=== PATIENT | male | born 1945 | race Caucasian/White ===

== ENCOUNTER 2023-08-18 17:05 | Inpatient (IN) | payer MEDICARE, OTHER, SELFPAY ==
[2023-08-18 17:30] VITALS: BP 122/83; PULSE 67; RESP 20; TEMP 36.5
[2023-08-18 17:47] VITALS: BMI 27.1
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
[2023-08-19 06:00] VITALS: BP 127/83; PULSE 51; RESP 18; TEMP 36.3; O2SAT 96
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
--- NOTE | 2023-08-19 11:34 | HO.PM.IMCN ---
History of Present Illness Data of Consult Service Date: 08/19/23 Requesting physician: Solo Montes De Oca Primary Care Provider: Unknown Physician HPI Reason for consult: medical h&P 77 year old male with history of paroxysmal atrial fibrillation anticoagulated with eliquis, BPH, hld, htn, gout, mixed vascular alzheimer's dementia, hx compression fracture admitted to psychiatry from [facility] ED with consult placed to hospitalist team for medical H&P. On review, ED provider notes of patient chart, [facility] ED medical provider notes are unavailable and patient is unavailable for exam at the time of evaluation. Medical history obtained from [facility] EHR. EKG at [facility] revealed NSR, rate [address]/T wave abnormalities. CBC, CMP, UA all reassuring. Review of Systems Review of Systems: Yes Other (pt unavailable) [facility] Medical History Tubular adenoma of colon Impaired fasting glucose BPH (benign prostatic hyperplasia) HLD (hyperlipidemia) Paroxysmal atrial fibrillation HTN (hypertension) Surgical History Status post placement of implantable loop recorder Social History Household Members: None Housing: [facility] Unable to assess alcohol history related to: Unable to respond Patient Tobacco Use Status: Tobacco use Unknown Years Smoked: Unable to answer due to cognitive status Frequency of e-Cigarette/Vaping Use: Unable to answer due to cognitive status Use of substances other than those prescribed or required for medical reasons: Unable to respond Substance Use Type Other:: Unable to answer due to cognitive status Last Used Substance: Unknown Last Used Substance Other:: Unable to answer due to cognitive status Currently Displaying Signs/Symptoms of Drug Intoxication Withdrawal: No Other Past Substance Use Problem:: Unable to answer due to cognitive status Spiritual Healthcare Practices: Unable to answer due to cognitive status [facility] Healthcare Practices: Unable to answer due to cognitive status Cultural Healthcare Practices: Unable to answer due to cognitive status Advance Directives: Yes ([facility] came with pt.) Advance Directives Information Provided: No Advance Directives on File: Yes Advance Directives Date on File: 08/18/23 Do you have thoughts of harming others: None Do you have a plan to hurt others: No Plan Recently lost weight without trying: Unsure How much weight loss: Unsure Nutrition Risks: No Nutritional Risk Meds Allergies Allergy/AdvReac Type Severity Reaction Status Date / Time ABELARDO Inhibitors Allergy Unknown Verified 08/18/23 17:46 ARB-Angiotensin Receptor Allergy Unknown Verified 08/18/23 17:46 Antagonist Active Medications: Current Medications Acetaminophen (Acetaminophen 325 Mg Tablet) 650 mg PO Q6H PRN PRN Reason: Headache/Pain Mild Scale (1-3) Al Hydroxide/Mg Hydroxide (Magnesium Hydrox/Alum Hydrox 30 Ml Oral.Susp) 30 ml PO Q6H PRN PRN Reason: Heartburn/Nausea Apixaban (Apixaban 5 Mg Tablet) 5 mg PO BID [facility] Last Admin: 08/19/23 08:28 Dose: 5 mg Artificial Tears (Artificial Tears 15 Ml Drops) 1 drop EYE-BOTH DAILY [facility] Last Admin: 08/19/23 09:19 Dose: Not Given Atorvastatin Calcium (Atorvastatin Calcium 80 Mg Tablet) 80 mg PO DAILY [facility] Last Admin: 08/19/23 08:28 Dose: 80 mg Finasteride (Finasteride 5 Mg Tablet) 5 mg PO DAILY [facility] Last Admin: 08/19/23 08:28 Dose: 5 mg Gabapentin (Gabapentin 300 Mg Capsule) 300 mg PO BEDTIME [facility] Last Admin: 08/18/23 20:47 Dose: 300 mg Magnesium Hydroxide (Milk Of Magnesia 30 Ml Oral.Susp) 30 ml PO DAILY PRN PRN Reason: Constipation Memantine (Memantine Hcl 5 Mg Tablet) 5 mg PO BEDTIME [facility] Last Admin: 08/18/23 20:47 Dose: 5 mg Mirtazapine (Mirtazapine 7.5 Mg Tablet) 7.5 mg PO BEDTIME [facility] Last Admin: 08/18/23 20:47 Dose: 7.5 mg Nicotine Polacrilex (Nicotine Polacrilex 2 Mg Gum) 4 mg BUCCAL Q2H PRN PRN Reason: Nicotine Cravings Olanzapine (Olanzapine Odt 10 Mg Tab.Rapdis) 10 mg TRANSLINGU TID PRN PRN Reason: agitation Olanzapine (Olanzapine 2.5 Mg Tablet) 2.5 mg PO DAILY [facility] Last Admin: 08/19/23 08:28 Dose: 2.5 mg Olanzapine (Olanzapine 7.5 Mg Tablet) 7.5 mg PO BEDTIME [facility] Last Admin: 08/18/23 20:47 Dose: 7.5 mg Trazodone HCl (Trazodone Hcl 50 Mg Tablet) 50 mg PO BEDTIME MRX1 PRN PRN Reason: Insomnia Last Admin: 08/18/23 20:47 Dose: 50 mg Home Medications Medication Instructions Recorded Confirmed Last Taken Type Artificial Tears 1 drp ophthalmic (eye) DAILY 08/18/23 08/18/23 Unknown History apixaban 5 mg tablet (Eliquis) 5 mg PO BID 08/18/23 08/18/23 Unknown History atorvastatin 80 mg tablet 80 mg PO DAILY 08/18/23 08/18/23 Unknown History finasteride 5 mg tablet 5 mg PO DAILY 08/18/23 08/18/23 Unknown History gabapentin 300 mg capsule 300 mg PO BEDTIME 08/18/23 08/18/23 Unknown History memantine 5 mg tablet 5 mg PO BEDTIME 08/18/23 08/18/23 Unknown History mirtazapine 15 mg tablet 7.5 mg PO BEDTIME 08/18/23 08/18/23 Unknown History olanzapine 2.5 mg tablet 2.5 mg PO DAILY 08/18/23 08/18/23 Unknown History olanzapine 7.5 mg tablet 7.5 mg PO BEDTIME 08/18/23 08/18/23 Unknown History Physical Exam Vital Signs and Narrative: Vital Signs: Last Vital Signs Temp 97.3 F 08/19/23 06:00 Pulse 51 08/19/23 06:00 Resp 18 08/19/23 06:00 BP 127/83 08/19/23 06:00 Pulse Ox 96 08/19/23 06:00 O2 Del Method Room Air 08/19/23 06:00 BMI result Body Mass Index 27.1 Pt unavailable for examination Results Labs Labs: Laboratory Results - last 24 hr 08/19/23 08:43 Estimat Average Glucose 105 Hemoglobin A1c % 5.3 Triglycerides 53 Cholesterol 94 LDL Cholesterol, Calc 43 HDL Cholesterol 41 Assessment and Plan (1) Routine medical exam: Status: Acute Plan 77 year old male with history of paroxysmal atrial fibrillation anticoagulated with eliquis, BPH, hld, htn, gout, mixed vascular alzheimer's dementia, hx compression fracture admitted to psychiatry from [facility] ED with consult placed to hospitalist team for medical H&P. #Mood diorder/dementia -plan per psychiatry #Paroxysmal atrial fibrillation -continue eliquis for anticoagulation -rate controlled, not on rate control medications #BPH -continue finsteride #HTN -bp reasonably controlled -not on antihypertensive agents -monitor bp #HLD -continue statin Available [facility] records reviewed. ED medical provider unavailable for review and pt unavailable for exam. Thank you for allowing me to participate in this consult. Signing off at this time. Please do not hesitate to call for further questions or for any acute medical issues that may arise. Time Spent With Patient Time: Total time managing care of this patient today ____ minutes.
[2023-08-19 18:00] VITALS: BP 140/73; PULSE 58; RESP 16; TEMP 36.3; O2SAT 96
[2023-08-20 08:00] VITALS: BP 134/72; PULSE 62; RESP 16; TEMP 36.5; O2SAT 96
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
[2023-08-20 18:00] VITALS: PULSE 66; RESP 20; TEMP 36.6; O2SAT 92
[2023-08-21 06:00] VITALS: BP 136/78; PULSE 62; RESP 18; TEMP 36.2; O2SAT 96
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
[2023-08-21 20:10] VITALS: BP 150/55; PULSE 56; RESP 17; TEMP 36.4; O2SAT 95
[2023-08-22 06:00] VITALS: BP 148/67; PULSE 62; RESP 18; TEMP 36.5; O2SAT 96
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
[2023-08-22 20:28] VITALS: BP 115/57; PULSE 65; TEMP 36.2; O2SAT 93
[2023-08-23 06:00] VITALS: BP 139/59; PULSE 61; RESP 16; TEMP 36.2; O2SAT 94
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
[2023-08-23 18:00] VITALS: BP 115/88; PULSE 67; RESP 17; TEMP 36.7; O2SAT 93
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
[2023-08-24 10:54] VITALS: BP 114/59; PULSE 66; RESP 18; TEMP 36.1; O2SAT 94
[2023-08-24 18:00] VITALS: BP 127/71; PULSE 61; RESP 18; TEMP 36.1; O2SAT 93
[2023-08-24] MEDS: OLANZapine ODT 10 MG TAB.RAPDIS 5 MG TRANSLINGU (18:07)
[2023-08-24] MEDS: OLANZapine 7.5 MG TABLET PO (20:40)
[2023-08-24] MEDS: traZODone HCL 50 MG TABLET PO (20:40)
[2023-08-24] MEDS: Mirtazapine 7.5 MG TABLET PO (20:40)
[2023-08-24] MEDS: Gabapentin 300 MG CAPSULE PO (20:40)
[2023-08-24] MEDS: Divalproex Sodium Sprinkles 125 MG CAP.DR.SPR PO (20:40)
[2023-08-24] MEDS: Memantine HCl 5 MG TABLET PO (20:41)
[2023-08-24] MEDS: Apixaban 5 MG TABLET PO (20:41)
[2023-08-25 07:00] VITALS: BMI 24.8
[2023-08-25 08:00] VITALS: BP 149/74; PULSE 77; RESP 18; TEMP 36.2; O2SAT 93
[2023-08-25] MEDS: Finasteride 5 MG TABLET PO (08:10)
[2023-08-25] MEDS: OLANZapine 2.5 MG TABLET PO (08:11)
[2023-08-25] MEDS: Artificial Tears 15 ML DROPS 1 DROP EYE-BOTH (08:11)
[2023-08-25] MEDS: Apixaban 5 MG TABLET PO ×2 (08:11→20:44)
[2023-08-25] MEDS: Atorvastatin Calcium 80 MG TABLET PO (08:11)
[2023-08-25] MEDS: Divalproex Sodium Sprinkles 125 MG CAP.DR.SPR PO ×2 (08:11→20:44)
[2023-08-25] MEDS: OLANZapine ODT 10 MG TAB.RAPDIS 5 MG TRANSLINGU (18:40)
[2023-08-25 19:35] VITALS: BP 139/73; PULSE 70; RESP 16; TEMP 36.6; O2SAT 93
[2023-08-25] MEDS: traZODone HCL 50 MG TABLET PO (20:43)
[2023-08-25] MEDS: Memantine HCl 5 MG TABLET PO (20:43)
[2023-08-25] MEDS: Gabapentin 300 MG CAPSULE PO (20:44)
[2023-08-25] MEDS: OLANZapine 7.5 MG TABLET PO (20:44)
[2023-08-25] MEDS: Mirtazapine 7.5 MG TABLET PO (20:44)
[2023-08-26 08:00] VITALS: BP 140/72; PULSE 72; RESP 18; TEMP 36.5; O2SAT 94
[2023-08-26] MEDS: Divalproex Sodium Sprinkles 125 MG CAP.DR.SPR PO ×2 (10:45→20:45)
[2023-08-26] MEDS: Finasteride 5 MG TABLET PO (10:45)
[2023-08-26] MEDS: Atorvastatin Calcium 80 MG TABLET PO (10:45)
[2023-08-26] MEDS: OLANZapine 2.5 MG TABLET PO (10:45)
[2023-08-26] MEDS: Apixaban 5 MG TABLET PO ×2 (10:45→20:44)
[2023-08-26] MEDS: Artificial Tears 15 ML DROPS 1 DROP EYE-BOTH (10:48)
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
[2023-08-26 18:00] VITALS: BP 140/78; PULSE 57; RESP 18; TEMP 36.2; O2SAT 93
[2023-08-26] MEDS: Mirtazapine 7.5 MG TABLET PO (20:45)
[2023-08-26] MEDS: Gabapentin 300 MG CAPSULE PO (20:45)
[2023-08-26] MEDS: OLANZapine 5 MG TABLET PO (20:45)
[2023-08-26] MEDS: Memantine HCl 5 MG TABLET PO (20:45)
[2023-08-27 06:00] VITALS: BP 139/80; PULSE 48; RESP 18; TEMP 35.7; O2SAT 97
[2023-08-27] MEDS: Atorvastatin Calcium 80 MG TABLET PO (09:53)
[2023-08-27] MEDS: OLANZapine 2.5 MG TABLET PO (09:53)
[2023-08-27] MEDS: Divalproex Sodium Sprinkles 125 MG CAP.DR.SPR PO ×2 (09:53→21:01)
[2023-08-27] MEDS: Finasteride 5 MG TABLET PO (09:53)
[2023-08-27] MEDS: Apixaban 5 MG TABLET PO ×2 (09:53→21:01)
[2023-08-27] MEDS: Artificial Tears 15 ML DROPS 1 DROP EYE-BOTH (09:54)
[2023-08-27 18:00] VITALS: BP 139/64; PULSE 66; RESP 16; TEMP 36.2; O2SAT 92
[2023-08-27] MEDS: OLANZapine 5 MG TABLET PO (21:01)
[2023-08-27] MEDS: Memantine HCl 5 MG TABLET PO (21:01)
[2023-08-27] MEDS: Mirtazapine 7.5 MG TABLET PO (21:01)
[2023-08-27] MEDS: Gabapentin 300 MG CAPSULE PO (21:01)
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
[2023-08-28 08:15] VITALS: BP 148/78; PULSE 48; RESP 16; TEMP 35.9; O2SAT 94
[2023-08-28] MEDS: Apixaban 5 MG TABLET PO ×2 (09:11→20:18)
[2023-08-28] MEDS: Atorvastatin Calcium 80 MG TABLET PO (09:11)
[2023-08-28] MEDS: OLANZapine 2.5 MG TABLET PO (09:12)
[2023-08-28] MEDS: Finasteride 5 MG TABLET PO (09:12)
[2023-08-28] MEDS: Divalproex Sodium Sprinkles 125 MG CAP.DR.SPR PO ×2 (09:12→20:19)
[2023-08-28] MEDS: Artificial Tears 15 ML DROPS 1 DROP EYE-BOTH (09:13)
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
[2023-08-28 19:30] VITALS: BP 138/74; PULSE 54; RESP 16; TEMP 36.7; O2SAT 96
[2023-08-28] MEDS: Gabapentin 300 MG CAPSULE PO (20:18)
[2023-08-28] MEDS: OLANZapine 5 MG TABLET PO (20:18)
[2023-08-28] MEDS: Memantine HCl 5 MG TABLET PO (20:18)
[2023-08-28] MEDS: Mirtazapine 7.5 MG TABLET PO (20:19)
[2023-08-29 08:00] VITALS: BP 144/86; PULSE 52; RESP 16; TEMP 36.3; O2SAT 97
[2023-08-29 08:01] LABS: Ammonia 39 umol/L (13-55)
[2023-08-29 08:11] LABS: Valproate 16.8 mcg/mL (50.0-100.0)
[2023-08-29] MEDS: Finasteride 5 MG TABLET PO (08:40)
[2023-08-29] MEDS: Divalproex Sodium Sprinkles 125 MG CAP.DR.SPR PO ×2 (08:40→21:14)
[2023-08-29] MEDS: Apixaban 5 MG TABLET PO ×2 (08:40→21:15)
[2023-08-29] MEDS: Atorvastatin Calcium 80 MG TABLET PO (08:40)
[2023-08-29] MEDS: OLANZapine 2.5 MG TABLET PO (08:40)
[2023-08-29] MEDS: Artificial Tears 15 ML DROPS 1 DROP EYE-BOTH (08:41)
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
[2023-08-29 18:00] VITALS: BP 115/77; PULSE 75; RESP 16; TEMP 36.6; O2SAT 97
[2023-08-29] MEDS: OLANZapine 5 MG TABLET PO (21:14)
[2023-08-29] MEDS: Mirtazapine 7.5 MG TABLET PO (21:15)
[2023-08-29] MEDS: Gabapentin 300 MG CAPSULE PO (21:15)
[2023-08-29] MEDS: Memantine HCl 5 MG TABLET PO (21:15)
[2023-08-30 06:00] VITALS: BP 134/72; PULSE 72; RESP 16; TEMP 36.5; O2SAT 97
[2023-08-30] MEDS: Divalproex Sodium Sprinkles 125 MG CAP.DR.SPR PO ×2 (10:08→20:24)
[2023-08-30] MEDS: OLANZapine 2.5 MG TABLET PO (10:08)
[2023-08-30] MEDS: Apixaban 5 MG TABLET PO ×2 (10:08→20:24)
[2023-08-30] MEDS: Finasteride 5 MG TABLET PO (10:08)
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
[2023-08-30] MEDS: Artificial Tears 15 ML DROPS 1 DROP EYE-BOTH (10:09)
[2023-08-30] MEDS: Atorvastatin Calcium 80 MG TABLET PO (10:09)
[2023-08-30 18:00] VITALS: BP 101/69; PULSE 67; RESP 17; TEMP 36.4; O2SAT 94
[2023-08-30] MEDS: Gabapentin 300 MG CAPSULE PO (20:24)
[2023-08-30] MEDS: OLANZapine 5 MG TABLET PO (20:24)
[2023-08-30] MEDS: Memantine HCl 5 MG TABLET PO (20:24)
[2023-08-30] MEDS: Mirtazapine 7.5 MG TABLET PO (20:24)
[2023-08-31 09:44] VITALS: BP 147/72; PULSE 53; RESP 17; TEMP 36.2; O2SAT 95
[2023-08-31] MEDS: Apixaban 5 MG TABLET PO ×2 (09:48→20:00)
[2023-08-31] MEDS: Atorvastatin Calcium 80 MG TABLET PO (09:48)
[2023-08-31] MEDS: Divalproex Sodium Sprinkles 125 MG CAP.DR.SPR PO ×2 (09:48→20:00)
[2023-08-31] MEDS: Artificial Tears 15 ML DROPS 1 DROP EYE-BOTH (09:48)
[2023-08-31] MEDS: Finasteride 5 MG TABLET PO (09:48)
[2023-08-31] MEDS: OLANZapine 2.5 MG TABLET PO (09:48)
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
[2023-08-31 19:40] VITALS: BP 175/81; PULSE 71; RESP 16; TEMP 36.6; O2SAT 93
[2023-08-31] MEDS: Mirtazapine 7.5 MG TABLET PO (20:00)
[2023-08-31] MEDS: Gabapentin 300 MG CAPSULE PO (20:00)
[2023-08-31] MEDS: Memantine HCl 5 MG TABLET PO (20:00)
[2023-08-31] MEDS: OLANZapine 5 MG TABLET PO (20:00)
[2023-09-01 10:25] VITALS: BP 125/62; PULSE 61; RESP 18; TEMP 36; O2SAT 95
[2023-09-01] MEDS: Atorvastatin Calcium 80 MG TABLET PO (10:34)
[2023-09-01] MEDS: Apixaban 5 MG TABLET PO ×2 (10:34→20:02)
[2023-09-01] MEDS: Finasteride 5 MG TABLET PO (10:34)
[2023-09-01] MEDS: OLANZapine 2.5 MG TABLET PO (10:34)
[2023-09-01] MEDS: Divalproex Sodium Sprinkles 125 MG CAP.DR.SPR PO ×2 (10:34→20:02)
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
[2023-09-01] MEDS: LORazepam 1 MG TABLET PO (17:47)
[2023-09-01] MEDS: Memantine HCl 5 MG TABLET PO (20:02)
[2023-09-01] MEDS: Mirtazapine 7.5 MG TABLET PO (20:02)
[2023-09-01] MEDS: Gabapentin 300 MG CAPSULE PO (20:02)
[2023-09-01] MEDS: OLANZapine 5 MG TABLET PO (20:02)
== END 2023-09-01 20:15 | disposition home or self-care (01) | DRG 57 ==
PROVIDERS: Social Worker; Admitting Provider Psychiatry & Neurology Psychiatry; Visit Provider Psychiatry & Neurology Psychiatry
DX: G30.9 Alzheimer's disease, unspecified (principal); F02.818 Dementia in other diseases classified elsewhere, unspecified severity, with other behavioral disturbance; N40.0 Benign prostatic hyperplasia without lower urinary tract symptoms; F39 Unspecified mood [affective] disorder; E78.5 Hyperlipidemia, unspecified; I10 Essential (primary) hypertension; Z23 Encounter for immunization; Z79.01 Long term (current) use of anticoagulants; Z79.899 Other long term (current) drug therapy
CPT/HCPCS: 36415; 80061; 80164; 82140; 83036; 90686

== ENCOUNTER → 2023-08-18 17:05 | Outpatient (BNV) | payer MEDICARE, OTHER, SELFPAY | PROVIDERS: Admitting Provider Psychiatry & Neurology Psychiatry; Visit Provider Social Worker | DX: G30.9 Alzheimer's disease, unspecified (principal); F02.818 Dementia in other diseases classified elsewhere, unspecified severity, with other behavioral disturbance | CPT/HCPCS: 90792; 99231; 99232; 99239 ==

== ENCOUNTER → 2023-08-18 17:05 | Outpatient (BNV) | payer MEDICARE, OTHER, SELFPAY | PROVIDERS: Admitting Provider Psychiatry & Neurology Psychiatry; Visit Provider Physician Assistant | DX: I48.0 Paroxysmal atrial fibrillation (principal) | CPT/HCPCS: 99221 ==